=== PATIENT | male | born 1935 | race Caucasian/White ===

== ENCOUNTER → 2018-05-09 | Outpatient (CLI) | payer OTHER ==
[~2018-05-09] MED LIST: FLEXERIL PO
== END ==
LOC: RAD 09:12
DX: M47.25 Other spondylosis with radiculopathy, thoracolumbar region (principal); M48.07 Spinal stenosis, lumbosacral region

== ENCOUNTER 2019-01-02 05:32 | Inpatient (IN) | payer OTHER ==
[~2019-01-02] VITALS: Ht 180.3 cm; Wt 106.8 kg
[2019-01-02 06:44] LABS: ABSOLUTE NEUTROPHILS 3.5 thou/uL (1.4-8.2); BASOPHILS 0.6 % (0.0-2.0); HEMATOCRIT 39.2 % (42.0-52.0); HEMOGLOBIN 13.2 gm/dL (14.0-18.0); LYMPHOCYTES 27.2 % (24.0-44.0); MCH 30.5 pg (26.0-34.0); MCHC 33.7 g/dL (28.0-37.0); MCV 90.6 fL (80.0-100.0); MONOCYTES 7.8 % (1.0-8.0); PLATELET COUNT 140 thou/uL (150-400); POLYS 59.4 % (36.0-66.0); RBC 4.32 mil/uL (4.50-6.00); RDW 13.5 % (10.5-14.5); WBC 6.4 thou/uL (4.0-11.0)
[2019-01-02 06:49] LABS: ANION GAP 8 mmol/L (7-16); BUN 11 mg/dL (7-18); CHLORIDE 107 mmol/L (98-107); CO2 26 mmol/L (21-32); GLUCOSE 102 mg/dL (74-106); POTASSIUM 3.6 mmol/L (3.5-5.1); SODIUM 141 mmol/L (136-145)
[2019-01-02 06:58] LABS: URINE BILIRUBIN NEGATIVE (Negative); URINE BLOOD NEGATIVE (Negative); URINE CLARITY CLEAR; URINE COLOR YELLOW; URINE GLUCOSE-RANDOM* NEGATIVE (Negative); URINE KETONES NEGATIVE (Negative); URINE LEUKOCYTES-REFLEX NEGATIVE (Negative); URINE NITRITE-REFLEX NEGATIVE (Negative); URINE PROTEIN (DIPSTICK) NEGATIVE (Negative); URINE SPECIFIC GRAVITY <= 1.005 (1.005-1.035); URINE UROBILINOGEN 0.2 E.U./dl (0.2-1.0)
[2019-01-02 06:58] LABS: TROPONIN-I <0.06 ng/mL (<0.06)
[2019-01-02 08:35] VITALS: BP 144/87
[2019-01-02 09:39] VITALS: BP 175/94
[2019-01-02] MEDS ORDERED: LIPITOR 20 MG T20 M1 PO (12:30)
[2019-01-02] MEDS ORDERED: NORVASC10 MG PO (12:30)
[2019-01-02] MEDS ORDERED: VITAMIN D1000 UNI1 PO (12:31)
[2019-01-02] MEDS ORDERED: LASIX 40 MG TAB40 M2 PO (12:31)
[2019-01-02] MEDS ORDERED: OXYBUTYNIN 5 MG5 M2 PO (12:32)
[2019-01-02] MEDS ORDERED: HALCION0.25 MG PO (12:32)
[2019-01-02] MEDS ORDERED: B12INJ PO (12:33)
--- NOTE | 2019-01-02 14:58 | NUR ---
Pt came to unit from ED approx 0930. Pt alert and oriented upon coming to unit. More confused as shift went on. Tries to call his . Number ED has for is not working. able to call pt back in room this afternoon. Pt has had frequent falls at home. Recognizes he has become more confused recently. Called Dr. Mahajan's office to obtain list of pt's home medications. Information faxed back to unit. Fall precautions in place. Will continue to monitor and assist with needs.
[2019-01-02 16:23] VITALS: BP 153/95
[2019-01-02 17:17] LABS: TSH 1.801 uIU/mL (0.358-3.740)
[2019-01-02 22:06] VITALS: BP 134/90
[2019-01-03 03:18] VITALS: BP 134/88
--- NOTE | 2019-01-03 07:56 | EKG ---
[place] [address] [facility] [place] [address] ELECTROCARDIOGRAM REPORT Name: IGOR BERMEO Room #: 430-P ADM IN M.R.#: [id number] ������������������ Admission: 01/02/19 ������������������ Attend Phys: Eduardo Flowers DO Discharge: ������������������ Date of : 37 Report #: [id number] ����������������������������������������������������������������� [id number] THIS REPORT FOR: //name// [facility] ED Test Date: 2019-01-02 Test Time: 06:49:06 Pat Name: IGOR BERMEO Department: Room: 430 Gender: M Biomedical Scientist: EDI : 1935 Requested By: Gaurav Davies Order Number: [id number] MD: Raghavendra Merino Measurements Intervals [place] Rate: 62 P: 9 NY: 246 QRS: 32 QRSD: 180 T: 6 QT: 476 QTc: 484 Interpretive Statements Sinus rhythm Prolonged NY interval Right bundle branch block Compared to ECG 03/10/2006 09:50:57 Right bundle-branch block now present Electronically Signed On 01-03-2019 7:55:54 CDT by Raghavendra Merino [email or web address] ��������������������������������������������� <ELECTRONICALLY SIGNED> ���������������������������������������� By: Raghavendra Merino MD, [facility] ��������������������������������������������� 01/03/19 [id number] Raghavendra Merino MD, [facility] /EPI
[2019-01-03 08:01] VITALS: BP 158/100
--- NOTE | 2019-01-03 08:38 | NUR ---
ASSUMED CARE AT 1900, ASSESSMENT COMPLETED. PT CONFUSED, REQUIRED FREQ REORIENTATION TO REALITY, NIGHT PROGRESSED PT WAS LESS ABLE TO UNDERSTAND HE WAS IN THE HOSPITAL. PT WOULD STATE "I'M IN YOUR WORLD NOW, WHEN CAN I GO BACK TO MY WORLD?" GIVEN SLEEPING PILL AT HS BUT PT DID NOT FALL ASLEEP; OBTAINED PRN ORDERS FOR HALDOL x2 OVERNIGHT; PT FINALLY SLEPT A FEW HOURS AFTER THE SECOND DOSE. VERY IMPULSIVE, DID NOT REMEMBER TO CALL FOR HELP, BUT WOULD YELL OUT FROM HIS ROOM. WEAK, UNSTEADY GAIT WHEN AMBULATING TO TOILET WITH x2 ASSISTANCE, GAIT BELT, AND A WALKER. REPORTED MILD PAIN AT [facility] BUT REFUSED PAIN MEDS. NO OTHER CONCERNS, SHIFT REPORT GIVEN AT 0700.
--- NOTE | 2019-01-03 09:50 | NUR ---
INITIAL ASSESSMENT: Pt evaluated for d/c planning needs. Reviewed chart and spoke with nurse, pt and spouse. Pt lives in house with spouse of 60 years. Pt has walker and cane at home, and spouse says he uses them at home. Pt has had several falls recently. Spouse said she will do whatever patient wants. Pt plans on returning home on d/c from hospital. Will remain available to assist as needed.
--- NOTE | 2019-01-03 11:02 | NUR ---
PATIENT LEFT UNIT FOR MRI. PATIENT AND PATIENT'S WANT PATIENT TO DISCHARGE TO HOME TODAY. TOW MOTOR MECHANIC NOTIFIED ON UNIT. DR ALEMAN HERE ON UNIT NEW ORDERS IN CHART .
[2019-01-03 18:07] VITALS: BP 148/94
[2019-01-03 21:15] VITALS: BP 144/86
[2019-01-04 02:35] VITALS: BP 160/94
--- NOTE | 2019-01-04 06:10 | NUR ---
ASSUMED CARE AT 1900, ASSESSMENT COMPLETED. PT DENIES SACRAL PAIN THIS SHIFT. DENIES SOB OR NAUSEA. MORE ALERT THIS SHIFT COMPARED TO PREVIOUS NIGHT, GIVEN SLEEPING PILL AT HS; PT SLEPT FOR SEVERAL HOURS. REMEMBERED TO CALL FOR ASSISTANCE WITH CALL LIGHT RATHER THAN YELLING. BECAME MORE RESTLESS THIS AM; C/O NOT BEING ABLE TO URINATE ABOUT 0200; BLADDER SCAN SHOWED ABOUT 400 ML; PT ATTEMPTED TO URINATE IN URINAL AND TOILET WITHOUT RESULT. TRIED AGAIN ABOUT 0400, AND WAS ABLE TO SIT ON TOILET, URINATE WELL, AND HAVE A MEDIUM HARD BM. NO OTHER CONCERNS, WILL CONTINUE TO MONITOR.
[2019-01-04 08:46] VITALS: BP 153/95
--- NOTE | 2019-01-04 11:06 | HC ---
[facility] [place] [address] CONSULTATION Name: IGOR BERMEO Room #: 430-P ADM IN M.R.#: [id number] Admission: 01/02/19 ������������������ Attend Phys: Eduardo Flowers DO Discharge: ������������������ Date of : 36 Report #: [id number] THIS REPORT FOR: //name// CC: Eduardo Mahajan NEUROLOGY CONSULTATION HISTORY OF PRESENT ILLNESS: The patient is an 83-year-old male who was admitted yesterday for frequent falls. The patient's legs have been giving out. He is also complaining of difficulty with urination. The patient is in bed with his eyes closed. He is talking to me while his eyes are closed, he tells me he feels very tired and cannot open his eyes. His is in the room. I asked her if he snores and she says he snores very lightly at night. 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 Apparently, this is very taxing for the patient because it recalls memories of when he was a child in [place]. 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 PAST MEDICAL HISTORY: Hypertension, hyperlipidemia, neurogenic bladder. PAST SURGICAL HISTORY: Tonsillectomy, prostatectomy. MEDICATIONS AT HOME: Atorvastatin 10 mg daily, vitamin D 1000 units b.i.d., B12 1000 mcg daily, furosemide 40 mg daily, Norvasc 10 mg daily, oxybutynin 10 mg daily, temazepam 30 mg at bedtime. ALLERGIES: None. PHYSICAL EXAMINATION: VITAL SIGNS: Temperature is 36.6, pulse rate 113, respiratory rate 16, blood pressure 158/100, bedside pulse oximetry 95% on room air. NEUROLOGIC: Cranial nerves 2-12 are grossly intact. Motor exam demonstrates symmetrical strength in all 4 extremities with tone and bulk normal. Reflexes are trace throughout. Plantar responses are flexor. There is no evidence of dysmetria. Gait was not tested. The patient has diminished sensation to light touch and proprioception in lower extremities. LABORATORY DATA: Hematology: White blood cell count 6.4, hemoglobin 13.2, hematocrit 39.2. Urinalysis negative. Chemistry: Sodium 141, potassium 3.6, chloride 107, carbon dioxide 26, BUN 11, creatinine 1, glucose 102. B12 of 849. TSH 1.801. IMAGING: MRI of the head demonstrates age-related cerebral and cerebellar volume loss, mild microvascular disease and extensive [place] [address] CONSULTATION Name: IGOR BERMEO Room #: 430-P ADM IN M.R.#: [id number] Admission: 01/02/19 ������������������ Attend Phys: Eduardo Flowers DO Discharge: ������������������ Date of : 36 Report #: [id number] IMPRESSION: The patient admits to me that he has paresthesias in the feet. He may benefit from an outpatient EMG to evaluate for neuropathy. Because he is also having difficulty with strength in his legs, I have ordered an MRI of the lumbar spine without contrast to evaluate for spinal stenosis. The patient tells me he is simply exhausted and it did make it difficult to evaluate his cognitive abilities. I will come back tomorrow and speak with him again. I thank you for your kind referral of the patient and we will continue to follow him with you. ��������������������������������������������� <ELECTRONICALLY SIGNED> ���������������������������������������� By: Amparo Bartlett DO ��������������������������������������������� 01/04/19 1106 1501 1653 Amparo Bartlett DO /nt
--- NOTE | 2019-01-04 15:54 | NUR ---
CM HAD READ NOTES OF NEUROLOGIST AND SHE INDICATED THAT PT IS NOW AGREEABLE [facility]. CM WENT IN AND SPOKE WITH PT AND HE ISN'T AGREEABLE. HE STATED HE WANTED TO GO TO A FACILITY WITH [employer] SM INDICATED THAT [facility] MIGHT GOOD TO LOOK INTO BUT HE STATED THAT THERE AREN'T REAL JEWS THERE. CM ASKED IF PT WAS INTERESTED IN LOOKING ANYWHERE ELSE AND HE STATED THAT HIS SONS WANTED HIM TO GO TO REHAB BUT THAT WE ALL FALL AND THAT HE HAS 911 COME PICK HIM UP AND THAT HE HAS NEIGHBORS WHO CAN HELP AND THAT HE LIVES BUY THREE HOSPITALS BUT COME HERE BECAUSE OF DR. STEWART. PT INDICATED HE IS GOING TO GO HOME ONCE MEDICALLY STABLE. HE INDICATED THAT HE IS UNDER THE IMPRESSION THAT HE WILL BE GOING HOME TODAY. CM INDICATED THAT CM HADN'T BEEN INFORMED OF THAT AND THAT WE ARE STILL WAITING ON ANOTHER PHYSICAIN TO VISIT WITH HIM. CM TO FOLLOW INDICATED WITH DC PLANNING.
[2019-01-04 16:46] VITALS: BP 163/104
[2019-01-04 20:35] VITALS: BP 141/97
[2019-01-05 06:38] VITALS: BP 138/74
--- NOTE | 2019-01-05 07:47 | NUR ---
ASSUMED CARE AT 1900, ASSESSMENT COMPLETED. GAVE PT A SANDWICH BOX SINCE HE DID NOT EAT DINNER. PT ANXIOUS, WANTING MEDS FOR BACK PAIN AND SLEEP; GAVE NEWLY SCHEDULED MEDS, AND ABOUT TWO HOURS LATER, PT WAS ANXIOUS, IRRITABLE, AND MILDLY PARANOID; KEPT DEMANDING SOMEONE BE CONTACTED TO GIVE HIM MEDS FOR SLEEP. SPOKE WITH LILIYA PRABHAKAR, DISCUSSED DR. NICOLE'S NOTE, AND OBTAINED ORDER FOR PRN SEROQUEL. GAVE DOSE AROUND MIDNIGHT, PT SLEPT FITFULLY FOR ABOUT 4-5 HOURS, OCCASIONALLY TALKING OR WAKING UP AND STATING HE FELT NERVOUS AND WAS HAVING BAD DREAMS. PT C/O FEELING BLOATED AND GASSY OVERNIGHT, GAVE A [place] SODA BUT DID NOT GIVE MUCH RELIEF. THIS AM, PT AWAKE AND DEMANDING TO LEAVE, STATING GUANACO CATALAN SAID "IF I BEHAVED OVERNIGHT I COULD LEAVE FIRST THING THIS MORNING. I DON'T TRUST YOUR MANAGEMENT. I DON'T WANT TO BE HEAR." VERY CIRCULAR TALKING, DIFFICULT TO REORIENT REGARDING HOSPITAL STAY. SHIFT REPORT GIVEN AT 0700, NO OTHER CONCERNS.
[2019-01-05 08:10] VITALS: BP 152/94
--- NOTE | 2019-01-05 16:25 | NUR ---
FAXED REFERRAL TO [facility] SPOKE WITH ZARA IN ADM SHE RECEIVED AND WILL NOT BE ABLE TO ACCEPT THEY CANNOT MEET PT'S NEEDS. FAXED REFERRAL TO [facility] LEFT MSG WITH PRESTON IN ADM TO REVIEW REFERRAL AND PT COULD DC TODAY IF ACCEPTED. DCP TO FOLLOW.
[2019-01-05 16:35] VITALS: BP 132/92
--- NOTE | 2019-01-05 17:06 | NUR ---
DAVID MET WITH PT'S SON KORTNEY THIS AFTERNOON AND PROVIDED SNF LIST FOR REVIEW. HE ASKED THAT REFERRALS BE SENT TO [facility]. [facility] INDICATED THEY CAN'T ACCEPT PT. MESSAGE WAS LEFT WITH [facility]. SHOULD [facility] BE ABLE TO ACCEPT PT OVER WEEKEND CALL G[facility] . [facility] PHONE: FAX: .
--- NOTE | 2019-01-05 18:30 | NUR ---
PT ASSESSED AT START OF SHIFT. CALM AND COOPERTIVE W/ CARES. AMBULATED TO THE BR W/ STANDBY USING WALKER. APPETITE NOT VERY GOOD. MRI'S NEGATIVE. SON HERE TWICE TO SEE PT. SEREQUEL GIVEN FOR MRI.
[2019-01-05 20:52] VITALS: BP 145/96
[2019-01-06 08:07] VITALS: BP 135/92
--- NOTE | 2019-01-06 08:37 | NUR ---
PATIENT ALERT AND ORIENTED X4. NO CONFUSION NOTED. WAS IMPULSIVE AND TRIED TO GET UP A COUPLE OF TIMES. HAS POOR APPITITE. C/O PAIN, MED GIVEN. UP WITH ASSIST. SLEPT OFF AND ON DURING NIGHT.
[2019-01-06 16:59] VITALS: BP 145/76
--- NOTE | 2019-01-07 02:42 | NUR ---
PATIENT WAS ALERT AND AGITATED AT FIRST OF SHIFT. SAID HIS ROOM WAS TOO COLD. BLANKETS WERE PUT ON HIM. THE TEMP WAS TURNED UP IN HIS ROOM. HE CAME OUT TO THE DESK WANTING TO KNOW ABOUT HIS NIGHTTIME MEDS, EXPLAINED TO HIM THAT THEY WERE DUE AT 2100 AND I WOULD BRING THEM TO HIM SHORTLY. SECURITY WAS CALLED AND PATIENT WAS REDIRECTED BACK TO ROOM. MEDS WERE GIVEN. PATIENT WANTED A SLEEPER. HOSPITALIST WAS CALLED AND AN ORDER WAS OBTAINED AND GIVEN ALONG WITH A PAIN MED. PATIENT SEEMED TO CALMER AT THIS TIME. LATER WANTED THE [facility] TO COME SEE HIM, IT WAS 2330. TRIED TO EXPLAIN TO HIM THAT THEY DO NOT COME IN THE MIDDLE OF THE NIGHT. HE ARGUED WITH ME AND TOLD ME THAT I WAS AGAINST JEWS. HE ALSO TOLD ME THAT HE WAS NOT SUPPOSED TO BE IN THIS HOSPITAL BECAUSE HE WAS A HOAHAOISM. GOT VERY AGITATED AND WANTED TO LEAVE. SECURITY AGAIN WAS CALLED BECAUSE HE AGAIN CAME OF HIS ROOM TO THE DESK AND REFUSED TO GO BACK. AGAIN SECURITY WAS ABLE TO GET HIM TO HIS ROOM. HIS WAS CALLED AND HE TOLD HER TO COME AND GET HIM. HE CALLED THE NURSES NAMES AND ARGUED WITH EVERY THING THEY SAID. HE WAS ACTING VERY PARANOID. HIS ARRIVED AND GATHERED HIS BELONGINGS AND THEY WENT TO THE ELEVATOR WHERE THEY WERE MET BY 2 STAFF NURSES, BEARING RING ASSEMBLER, SECRITY OFFICER AND HOSPITALIST. ALL TRIED TOCONVINCE HIM TO STAY AND FIND OUT HIS LEVEL OF COGNITION. HE WAS VERY BELERGENT WITH ALL. HE FINALLY SIGNED THE AMA FORM AND HIS INITIALED IT. SHE WAS ASKED BEFORE THEY LEFT IF SHE COULD HANDLE HIM AND IF SHE WAS ALRIGHT WITH TAKING HIM HIME. SHE SAID SHE COULD. THEY LEFT AT 0055.
== END 2019-01-07 00:55 | disposition left against medical advice (07) | DRG 72 ==
LOC: ER 05:32 → EROBS 08:19 → 4E 08:19
PROVIDERS: Emergency Medicine; ADMIT Internal Medicine Geriatric Medicine
DX: G93.41 Metabolic encephalopathy (principal); F03.90 Unspecified dementia, unspecified severity, without behavioral disturbance, psychotic disturbance, mood disturbance, and anxiety; R53.81 Other malaise; R29.6 Repeated falls; G47.00 Insomnia, unspecified; I10 Essential (primary) hypertension; E78.5 Hyperlipidemia, unspecified; E53.8 Deficiency of other specified B group vitamins; E55.9 Vitamin D deficiency, unspecified; F02.80 Dementia in other diseases classified elsewhere, unspecified severity, without behavioral disturbance, psychotic disturbance, mood disturbance, and anxiety; R41.0 Disorientation, unspecified; N32.81 Overactive bladder; M51.24 Other intervertebral disc displacement, thoracic region; M50.20 Other cervical disc displacement, unspecified cervical region; F41.9 Anxiety disorder, unspecified; F43.10 Post-traumatic stress disorder, unspecified; W18.39XA Other fall on same level, initial encounter; Y93.89 Activity, other specified; Z90.89 Acquired absence of other organs; Z90.79 Acquired absence of other genital organ(s); Z87.891 Personal history of nicotine dependence; Z79.899 Other long term (current) drug therapy; Y92.89 Other specified places as the place of occurrence of the external cause; Y99.8 Other external cause status; Z53.21 Procedure and treatment not carried out due to patient leaving prior to being seen by health care provider
CPT/HCPCS: 10084

== ENCOUNTER 2019-01-15 10:56 | Inpatient (IN) | payer OTHER ==
[~2019-01-15] VITALS: Ht 180.3 cm; Wt 102.1 kg
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
--- NOTE | ~2019-01-15 | D ---
[facility] [place] [address] DISCHARGE SUMMARY Name: IGOR BERMEO Room #: 525B-B [facility] IN M.R.#: [id number] Admission: 01/15/19 Attend Phys: Donovan Diaz MD Discharge: 01/23/19 Date of : 36 Report #: [id number] THIS REPORT FOR: //name// CC: Jaspreet Diaz DATE OF SERVICE: 01/23/2019 INPATIENT PSYCHIATRIC DISCHARGE SUMMARY ATTENDING: Marquez Lyons DO WHEEL OF FORTUNE DEALER THIS ADMISSION: Marquez Campos M.D. 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 Medical comorbidities include hypertension, insomnia, treated with melatonin, overactive bladder, currently on oxybutynin, vitamin D deficiency, vitamin B12 deficiency, hyperlipidemia. DISCHARGE MEDICATIONS: Include atorvastatin 10 mg p.o. daily for hyperlipidemia, amlodipine 10 mg p.o. daily for hypertension. Diclofenac sodium 4 mg topical 4 times a day for arthritis, acetaminophen 650 mg p.o. scheduled at 0900, 1500, 2100, sertraline 100 mg p.o. daily, furosemide 40 mg p.o. daily p.r.n. for edema, polyethylene glycol 17 g p.o. b.i.d. for bowel motility, senna-S 1 tab p.o. b.i.d. for motility, oxybutynin 5 mg p.o. daily, cyanocobalamin 1000 mcg p.o. daily for supplementation, cholecalciferol 1000 units p.o. b.i.d. for supplementation, melatonin 10 mg p.o. at bedtime. DISCHARGE PLAN: From the social work notes, the patient will be sent to the assisted living facility, [facility]. His general medical, psychiatric care will be provided at that facility. Physical therapy is recommended at this time due to pain and impaired gait. REASON FOR ADMISSION: Paranoia, increased back pain, unable to ambulate, constipation, increased agitation. HOSPITAL COURSE: The patient was admitted to Geriatric Psychiatry Unit. He was initially reclusive to his room. We discussed the importance of his participating in activities. Pain control was somewhat of an issue. I switched him from p.r.n. to scheduled Tylenol. Family was educated on the nature of having a major neurocognitive disorder. I met with his , one of his sons, his other son by telephone. It was obvious that his care needs are beyond which the can provide. At the day of discharge, the patient was not suicidal or homicidal, felt to be ready for discharge. [address] [address] DISCHARGE SUMMARY Name: IGOR BERMEO Room #: 525B-B DIS IN M.R.#: [id number] Admission: 01/15/19 Attend Phys: Donovan Diaz MD Discharge: 01/23/19 Date of : 36 Report #: [id number] VITAL SIGNS ON DISCHARGE DAY: Temperature 36.9, heart rate 70, respirations 18, BP 154/91. SIGNIFICANT LABORATORIES THIS ADMISSION: CBC grossly normal. CMP: Glucose 117, BUN 22, otherwise normal. Urine protein shows a trace. Physical exam, ambulating with a walker. MENTAL STATUS EXAMINATION: This is a well-developed, fairly nourished, mildly obese male apparently stated age. Attention intact. Concentration fair. Speech is normal, rate, rhythm and tone. Thought process is linear and goal directed. Thought content overly focused on events in World War II. No psychomotor retardation. Mood and affect were congruent and euthymic. Denied SI, HI. Denied hopelessness, helplessness. Memory with some impairment. Patient was minimally cooperative with neuropsych testing by Dr. Valentin. Mild neurocognitive disorder, unspecified, with poor insight and paranoia. PTSD. He had impairments from a nursing standpoint. Severe impairment in attention, working memory, immediately and moderate impairment aspects of executive functioning, is observed to have verbal fluency deficits and poor insight and judgment is questionable. Neuropsych testing could not be completed due to patient's refusal to complete. Recommended neuropsych evaluation following hospitalization to clarify cognitive functioning. Driving be advised against as prognosis for this patient is guarded. By: [id number] Marquez Lyons, DO /nt
[~2019-01-15 10:56] MED LIST changes: +B12INJ PO; +HALCION0.25 MG PO; +LASIX 40 MG TAB40 M2 PO; +LIPITOR 20 MG T20 M1 PO; +NORVASC10 MG PO; +OXYBUTYNIN 5 MG5 M2 PO; +VITAMIN D1000 UNI1 PO
[2019-01-15 11:07] VITALS: BP 121/71
[2019-01-15 11:30] LABS: ABSOLUTE NEUTROPHILS 3.9 thou/uL (1.4-8.2); BASOPHILS 0.6 % (0.0-2.0); EOSINOPHILS 3.1 % (0.0-3.0); HEMATOCRIT 44.6 % (42.0-52.0); HEMOGLOBIN 15.1 gm/dL (14.0-18.0); LYMPHOCYTES 19.7 % (24.0-44.0); MCH 30.5 pg (26.0-34.0); MCV 89.9 fL (80.0-100.0); MONOCYTES 7.4 % (1.0-8.0); PLATELET COUNT 199 thou/uL (150-400); POLYS 69.2 % (36.0-66.0); RBC 4.96 mil/uL (4.50-6.00); RDW 13.5 % (10.5-14.5); WBC 5.6 thou/uL (4.0-11.0)
[2019-01-15 11:43] LABS: URINE BILIRUBIN NEGATIVE (Negative); URINE BLOOD NEGATIVE (Negative); URINE CLARITY CLEAR; URINE COLOR YELLOW; URINE GLUCOSE-RANDOM* NEGATIVE (Negative); URINE KETONES NEGATIVE (Negative); URINE LEUKOCYTES-REFLEX NEGATIVE (Negative); URINE NITRITE-REFLEX NEGATIVE (Negative); URINE PROTEIN (DIPSTICK) TRACE (Negative); URINE SPECIFIC GRAVITY >= 1.030 (1.005-1.035); URINE UROBILINOGEN 0.2 E.U./dl (0.2-1.0)
[2019-01-15 11:54] LABS: CALCIUM 9.8 mg/dL (8.5-10.1); CREATININE 1.1 mg/dL (0.7-1.3); POTASSIUM 3.9 mmol/L (3.5-5.1)
[2019-01-15 11:59] LABS: ALBUMIN 4.1 g/dL (3.4-5.0); TOTAL BILIRUBIN 0.9 mg/dL (<0.1-1.0); TOTAL PROTEIN 7.9 g/dL (6.4-8.2)
[2019-01-15] MEDS ORDERED: PRAVACHOL40 MG PO (15:51)
[2019-01-15] MEDS ORDERED: SERTRALINE HCL100 MG PO (15:52)
[2019-01-15 16:48] VITALS: BP 144/89
[2019-01-15 19:17] VITALS: BP 131/85
[2019-01-16 10:51] VITALS: BP 136/88
[2019-01-16 19:28] VITALS: BP 126/69
[2019-01-16 23:14] VITALS: BP 126/69
[2019-01-17 06:00] VITALS: BP 126/69
[2019-01-17 07:28] VITALS: BP 154/87
[2019-01-17 19:49] VITALS: BP 153/88
[2019-01-18 08:50] VITALS: BP 151/83
[2019-01-18 20:11] VITALS: BP 164/82
[2019-01-19 13:44] VITALS: BP 146/89
[2019-01-19 21:10] VITALS: BP 125/79
[2019-01-20 08:00] VITALS: BP 154/95
[2019-01-20 09:35] VITALS: BP 154/95
[2019-01-20 21:19] VITALS: BP 151/84
[2019-01-20 23:41] VITALS: BP 151/84
[2019-01-21 09:27] VITALS: BP 143/98
[2019-01-21 11:58] VITALS: BP 143/98
[2019-01-21 21:24] VITALS: BP 154/88
[2019-01-21 23:50] VITALS: BP 154/88
[2019-01-22 08:45] VITALS: BP 152/85
[2019-01-22 19:40] VITALS: BP 1562/85
[2019-01-22 20:03] VITALS: BP 140/84
[2019-01-23 07:30] VITALS: BP 154/91
[2019-01-23 09:46] VITALS: BP 154/91
[2019-01-23] MEDS ORDERED: LIPITOR10 MG PO (12:36)
[2019-01-23] MEDS ORDERED: NORVASC10 MG PO (12:37)
[2019-01-23] MEDS ORDERED: VOLTAREN GEL 1100 G1 TOP (12:38)
[2019-01-23] MEDS ORDERED: ACETAMINOPHEN325 M1 PO (12:39)
[2019-01-23] MEDS ORDERED: ZOLOFT100 MG PO (12:40)
[2019-01-23] MEDS ORDERED: SENNA-TIME S T1 EACH PO (12:41)
[2019-01-23] MEDS ORDERED: LASIX 40 MG TAB40 M2 PO (12:41)
[2019-01-23] MEDS ORDERED: MIRALAX17 GM PO (12:41)
[2019-01-23] MEDS ORDERED: B-12500 MCG PO (12:42)
[2019-01-23] MEDS ORDERED: MELATONIN5 M1 PO (12:42)
[2019-01-23] MEDS ORDERED: OXYBUTYNIN 5 MG5 M1 PO (12:42)
[2019-01-23] MEDS ORDERED: VITAMIN D1000 UNI1 PO (12:43)
== END 2019-01-23 16:27 | DRG 57 ==
LOC: ER 10:56 → EROBS 15:01 → SBH 15:01
PROVIDERS: Physician Assistant; ADMIT Psychiatry & Neurology Psychiatry
DX: G30.9 Alzheimer's disease, unspecified (principal); F02.81 Dementia in other diseases classified elsewhere, unspecified severity, with behavioral disturbance; I10 Essential (primary) hypertension; F43.12 Post-traumatic stress disorder, chronic; N32.81 Overactive bladder; E55.9 Vitamin D deficiency, unspecified; E53.8 Deficiency of other specified B group vitamins; E78.5 Hyperlipidemia, unspecified; K59.00 Constipation, unspecified; M47.896 Other spondylosis, lumbar region; R26.9 Unspecified abnormalities of gait and mobility; R29.6 Repeated falls; G47.00 Insomnia, unspecified; Z90.79 Acquired absence of other genital organ(s); Z98.42 Cataract extraction status, left eye; Z98.41 Cataract extraction status, right eye; Z95.820 Peripheral vascular angioplasty status with implants and grafts; Z87.891 Personal history of nicotine dependence; Z79.899 Other long term (current) drug therapy; Z81.8 Family history of other mental and behavioral disorders
CPT/HCPCS: 10880